=== PATIENT | male | born 1945 | race Caucasian/White ===

== ENCOUNTER → 2016-07-20 | Outpatient (CLI) | payer MEDICARE, BC ==
[2016-07-20 09:36] LABS: Basophils % (A) 0 %; CH 28.6; Eosinophils # (A) 0.2 k/uL (0-0.7); Eosinophils % (A) 4 %; HDW 2.63; HGB 13.8 gm/dL (13.0-17.5); Luc # (Auto) 0.21; Luc % (Auto) 4; Lymphocytes % (A) 21 %; MCH 28.6 pg (25.0-35.0); MCHC 32.9 g/dL (31.0-37.0); MCV 87.1 fL (80.0-100.0); Mean Platelet Volume 7.2; Monocytes # (A) 0.5 k/uL (0-1.0); Monocytes % (A) 10 %; Neutrophils # (A) 3.1 k/uL (1.3-7.7); Neutrophils % (A) 62 %; RBC 4.83 m/uL (4.30-5.90); RDW 12.6 % (11.5-15.5); WBC (Perox) 5.11
[2016-07-20 10:59] LABS: Erythrocyte Sedimentation Rate 7 mm/hr (0-15)
[2016-07-20 11:02] LABS: Anion Gap 10 mmol/L; Blood Urea Nitrogen 27 mg/dL (9-20); C Reactive Protein 5.7 mg/L (<10.0); Calcium 8.5 mg/dL (8.4-10.2); Carbon Dioxide 26 mmol/L (22-30); Chloride 103 mmol/L (98-107); Glucose 95 mg/dL (74-99); Non-African American GFR(MDRD) >60 (>60 ml/min/1.73 sqM); Potassium 4.2 mmol/L (3.5-5.1); Sodium 139 mmol/L (137-145)
== END ==
LOC: LABWHC1 08:23
PROVIDERS: ATTEND Internal Medicine Infectious Disease
DX: T84.59XA Infection and inflammatory reaction due to other internal joint prosthesis, initial encounter (principal)
CPT/HCPCS: 36415; 80048; 85025; 85652; 86140

== ENCOUNTER → 2016-07-24 | Outpatient (CLI) | payer MEDICARE, BC ==
[2016-07-24 08:46] LABS: CH 28.7; CHCM 32.9; HCT 41.6 % (39.0-53.0); HDW 2.57; HGB 13.9 gm/dL (13.0-17.5); MCH 29.4 pg (25.0-35.0); MCHC 33.5 g/dL (31.0-37.0); MCV 87.8 fL (80.0-100.0); Mean Platelet Volume 7.7; RBC 4.73 m/uL (4.30-5.90); RDW 12.8 % (11.5-15.5); WBC 4.5 k/uL (3.8-10.6)
[2016-07-24 08:59] LABS: Appearance,Urine Clear (Clear); Bilirubin,Urine Negative (Negative); Glucose,Urine (UA) Negative (Negative); Ketones,Urine Negative (Negative); Leukocyte Esterase,Urine Negative (Negative); Nitrite,Urine Negative (Negative); Protein,Urine Trace (Negative); Specific Gravity,Urine 1.019 (1.001-1.035); UA Billing (MACRO vs. MICRO) CHEM; Urobilinogen,Urine <2.0 mg/dL (<2.0)
[2016-07-24 10:55] LABS: Anion Gap 8 mmol/L; Blood Urea Nitrogen 23 mg/dL (9-20); Carbon Dioxide 28 mmol/L (22-30); Chloride 104 mmol/L (98-107); Cholesterol 147 mg/dL (<200); Glucose 107 mg/dL (74-99); HDL Cholesterol 42 mg/dL (40-60); Non-African American GFR(MDRD) >60 (>60 ml/min/1.73 sqM); Potassium 4.6 mmol/L (3.5-5.1); Sodium 140 mmol/L (137-145); Triglycerides 103 mg/dL (<150)
[2016-07-24 11:20] LABS: Hemoglobin A1C 5.5 % (4.2-6.1)
[2016-07-24 11:32] LABS: Prostate Specific Antigen 9.32 ng/mL (0.00-4.00)
== END | disposition home or self-care (01) ==
LOC: LABWHC1 08:22
PROVIDERS: ATTEND Family Medicine
DX: Z00.00 Encounter for general adult medical examination without abnormal findings (principal); R53.83 Other fatigue
CPT/HCPCS: 36415; 80048; 80061; 81003; 83036; 84153; 84402; 84403; 84439; 84443; 85027

== ENCOUNTER → 2016-09-07 | Outpatient (CLI) | payer MEDICARE, BC ==
--- NOTE | 2016-09-07 14:36 | XR ---
EXAMINATION TYPE: XR shoulder complete BILAT DATE OF EXAM: 09/07/2016 11:41 AM CLINICAL HISTORY: Bilateral shoulder pain after spine surgery 3 months ago. TECHNIQUE: Three views of the bilateral shoulders are obtained. COMPARISON: CTA chest October 28, 2015. FINDINGS: There is no acute fracture/dislocation evident in either shoulder. There is spurring and j oint space loss at bilateral acromioclavicular joints, right more prominent than left subchondral cys tic change superolateral humeral heads is present bilaterally. There is joint space narrowing glenohu meral joint bilaterally. The visualized ribs are intact and unremarkable bilaterally. 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
== END | disposition home or self-care (01) ==
LOC: RADXRMAIN 11:23
PROVIDERS: ATTEND Nurse Practitioner Family
DX: M25.511 Pain in right shoulder (principal); M25.512 Pain in left shoulder

== ENCOUNTER → 2016-10-17 | Outpatient (CLI) | payer MEDICARE, BC ==
[2016-10-17 08:26] LABS: Basophils % (A) 1 %; CH 29.5; CHCM 33.5; Eosinophils # (A) 0.2 k/uL (0-0.7); Eosinophils % (A) 5 %; HCT 41.8 % (39.0-53.0); HDW 2.47; HGB 13.8 gm/dL (13.0-17.5); Luc # (Auto) 0.16; Luc % (Auto) 3; Lymphocytes # (A) 1.2 k/uL (1.0-4.8); Lymphocytes % (A) 24 %; MCH 29.3 pg (25.0-35.0); MCHC 33.1 g/dL (31.0-37.0); MCV 88.4 fL (80.0-100.0); Mean Platelet Volume 7.4; Monocytes # (A) 0.4 k/uL (0-1.0); Monocytes % (A) 9 %; Neutrophils % (A) 60 %; RBC 4.73 m/uL (4.30-5.90); RDW 14.4 % (11.5-15.5); WBC (Perox) 4.96
[2016-10-17 08:32] LABS: Anion Gap 8 mmol/L; Blood Urea Nitrogen 19 mg/dL (9-20); C Reactive Protein 8.6 mg/L (<10.0); Calcium 8.8 mg/dL (8.4-10.2); Carbon Dioxide 28 mmol/L (22-30); Chloride 102 mmol/L (98-107); Glucose 108 mg/dL (74-99); Non-African American GFR(MDRD) >60 (>60 ml/min/1.73 sqM); Potassium 4.4 mmol/L (3.5-5.1); Sodium 138 mmol/L (137-145)
[2016-10-17 10:03] LABS: Erythrocyte Sedimentation Rate 8 mm/hr (0-15)
== END | disposition home or self-care (01) ==
LOC: LABWHC1 07:27
PROVIDERS: ATTEND Internal Medicine Infectious Disease
DX: T84.59XA Infection and inflammatory reaction due to other internal joint prosthesis, initial encounter (principal)
CPT/HCPCS: 36415; 80048; 85025; 85652; 86140